=== PATIENT | female | born 1940 | race Caucasian/White ===

== ENCOUNTER 2024-02-21 13:28 | Emergency (ER) | payer OTHER, MEDICARE ==
[2024-02-21 14:07] LABS: BASOPHILS PERCENT AUTO 0.4 % (0.0-1.0); EOSINOPHILS ABSOLUTE AUTO 0.1 K/mm3 (0.0-0.4); EOSINOPHILS PERCENT AUTO 1.1 % (0.0-6.0); HEMATOCRIT 40.4 % (37.0-47.0); HEMOGLOBIN 13.5 gm/dl (12.0-16.0); IMMATURE GRAN ABSOLUTE AUTO 0.05 K/mm3 (0.00-0.05); IMMATURE GRAN PERCENT AUTO 0.6 % (0.0-0.4); LYMPHOCYTES ABSOLUTE AUTO 1.7 K/mm3 (1.0-4.8); LYMPHOCYTES PERCENT AUTO 20.1 % (24.0-44.0); MEAN CORPUSCULAR HEMOGLOBIN 31.3 pg (28.0-32.0); MEAN CORPUSCULAR HGB CONC 33.4 g/dl (32.0-36.0); MEAN CORPUSCULAR VOLUME 93.7 fl (83.0-99.0); MEAN PLATELET VOLUME 9.3 fl (9.4-12.3); MONOCYTES ABSOLUTE AUTO 0.6 K/mm3 (0.0-0.8); MONOCYTES PERCENT AUTO 6.8 % (0.0-8.0); PLATELET COUNT,PLT 186 K/mm3 (150-400); RED BLOOD CELL COUNT 4.31 M/mm3 (4.10-5.30); WHITE BLOOD CELL COUNT,WBC 8.44 K/mm3 (3.9-11.3)
[2024-02-21 14:17] LABS: A/G RATIO 1.1 (1-2); ALBUMIN 4.1 g/dl (3.4-5.0); ANION GAP 16.3 (5-15); BILIRUBIN TOTAL 0.5 mg/dL (0.2-1.0); BUN/CREATININE RATIO 25.3 (14-18); C-REACTIVE PROTEIN 0.14 mg/dL (<0.30); CALCIUM 9.7 mg/dL (8.5-10.1); CREATININE 1.5 mg/dL (0.55-1.02); EST CRCL DRUG DOSING (CG) 24.11 mL/min; POTASSIUM,K 3.3 mEq/L (3.5-5.1); PROTEIN TOTAL,TP 7.9 g/dl (6.4-8.2)
[2024-02-21] MEDS: Sodium Chloride 0.9% 10 ML Syringe FLUSH PRN (14:38)
[2024-02-21] MEDS: Sodium Chloride 0.9% 1,000 ML IV STA (14:38)
[2024-02-21] MEDS: Ondansetron 4 MG/2 ML SDV IVPUSH ONE (14:38)
[2024-02-21] MEDS ORDERED: Potassium Chloride 20 MEQ Tab.ER PO ONE (14:40)
== END 2024-02-21 16:08 | disposition home or self-care (01) ==
LOC: JD.ED 13:28
DX: R55 Syncope and collapse (principal); Z79.899 Other long term (current) drug therapy; Z91.018 Allergy to other foods
CPT/HCPCS: 36415; 70450; 71045; 80053; 82947; 84484; 85025; 86140; 93005; 96360; 99285; J3490; J7030; 99284; J2405